=== PATIENT | female | born 1990 | race Two or more races ===

== ENCOUNTER 2019-11-22 03:58 | Emergency (ER) | payer MEDICAID, OTHER ==
[~2019-11-22] VITALS: Ht 172.7 cm; Wt 117.5 kg
[2019-11-22 04:35] VITALS: BP 127/84
== END 2019-11-22 05:22 | disposition home or self-care (01) ==
LOC: ER 03:58
DX: T70.0XXA Otitic barotrauma, initial encounter (principal); R51 Headache; X58.XXXA Exposure to other specified factors, initial encounter; Y93.89 Activity, other specified; Y99.8 Other external cause status; Y92.89 Other specified places as the place of occurrence of the external cause